=== PATIENT | female | born 1965 | race Two or more races ===

== ENCOUNTER 2024-04-24 11:40 | Day surgery (SDC) | payer MEDICAID, SELFPAY ==
[2024-04-23 10:58] VITALS: BMI 32.1
[2024-04-24] VITALS (13 sets, daily range): BP systolic 97–169; BP diastolic 62–100; PULSE 66–81; RESP 12–21; TEMP 36.2–36.8; O2SAT 93–99; BMI 30.8
--- NOTE | 2024-04-24 13:49 | ESHP_ITS ---
RE: ASHLEY JULES : 1965 DATE OF ADMISSION: 04/24/2024 DATE OF PROCEDURE: 04/24/2024 HISTORY OF PRESENT ILLNESS: This patient was seen by me in the [facility] upon referral from Ashley Martinez. This patient is a 58-year-old female who only speaks Upper Sorbian. She was seen because of the need for colonoscope. She has never had colonoscope before. She had a positive FOBT. She denies any history of rectal bleeding and there is no history of colon cancer in the family. She denies any major medical problems other than cholesterol. She also seems to have a hypothyroidism because she is taking levothyroxine. PAST SURGICAL HISTORY: None. PHYSICAL EXAMINATION: GENERAL: Revealed a well-built, well-nourished, middle-aged female who speaks only Upper Sorbian. The patient is 5 feet tall weighing 156 pounds with BMA of 31.03. VITAL SIGNS: Temperature is 97.1, pulse 71, BP was 127/69. HEENT: Examination of the head normal. Eyes, Ears, Nose, and Throat were normal. NECK: Normal. No thyromegaly. CHEST: Revealed good breath sounds on both sides. HEART: Sinus rhythm with no murmurs. ABDOMEN: Examination of the abdomen is unremarkable. IMPRESSION: 1. Screening colonoscopy. 2. Positive FOBT. 3. Hypothyroidism. PLAN: I advised the patient to undergo colonoscopy. Procedure was explained to her using [employer] interpreter and she is agreeable. The procedure is planned on 04/24/2024. DT: 11:58:33 TT: 13:48:00 Ref: [id number] - TID: [id number]
[2024-04-24] MEDS: MIDAZOLAM INJ 1 MG/ML VIAL 2 ML (ASD USE ONLY) 2 MG IV (14:35)
[2024-04-24] MEDS: fentaNYL CIT INJ 50 mCg/ML AMP 2ML (ASD USE ONLY) IV (14:38)
[2024-04-24] MEDS: DiphenhydrAMINE INJ 50 MG/ML VIAL 25 MG IV (14:42)
== END 2024-04-24 15:48 | disposition home or self-care (01) ==
PROVIDERS: PCP Family Medicine; Referring Provider Surgery; Visit Provider Surgery
PROC: 0DBE8ZX Excision of Large Intestine, Via Natural or Artificial Opening Endoscopic, Diagnostic (ICD-10-PCS; CPT 45380; principal; 2024-04-24 13:00)
DX: Z12.11 Encounter for screening for malignant neoplasm of colon (principal); E03.9 Hypothyroidism, unspecified; Z79.890 Hormone replacement therapy; K64.4 Residual hemorrhoidal skin tags
CPT/HCPCS: 45378; A4217; J1200; J2250; J3010